=== PATIENT | male | born 1970 | race Caucasian/White ===

== ENCOUNTER 2020-10-01 09:20 | Outpatient (NON) | payer BC, SELFPAY ==
[2020-10-01 23:55] LABS: SARS-CoV-2 RNA PCR Positive
== END 2020-10-01 09:21 ==
LOC: ANHCOVIDDT 09:21
PROVIDERS: PCP Internal Medicine; Visit Provider Internal Medicine
DX: U07.1 COVID-19 (principal)
CPT/HCPCS: 87635; C9803; U0003

== ENCOUNTER 2022-06-10 08:54 | Outpatient (CLI) | payer BC, SELFPAY ==
[2022-06-10 19:04] LABS: Alanine Aminotransferase 29 U/L (6-50); Albumin Level 4.2 g/dL (3.5-5.1); Alkaline Phosphatase 71 U/L (38-126); Anion Gap 5 mmol/L (8-16); Aspartate Amino Transferase 34 U/L (17-59); Bilirubin,Total 0.7 mg/dL (0.2-1.3); Blood Urea Nitrogen 12 mg/dL (9-20); Calcium 8.9 mg/dL (8.4-10.2); Carbon Dioxide 31 mmol/L (22-30); Chloride 104 mmol/L (98-107); Cholesterol 215 mg/dL (0-200); Estimated Glomerular Filt Rate > 60; Glucose 111 mg/dL (65-110); HDL Direct 48 mg/dL; Sodium 140 mmol/L (137-145); Triglycerides 110 mg/dL (<150)
[2022-06-10 19:15] LABS: LDL Cholesterol Direct 123 mg/dL
[2022-06-10 19:35] LABS: Hemoglobin A1C 6.6 % (<5.7)
== END 2022-06-10 08:55 | disposition home or self-care (01) ==
LOC: ANHGOSHLAB 08:56
PROVIDERS: PCP Family Medicine; Visit Provider Family Medicine
DX: I10 Essential (primary) hypertension (principal); E78.2 Mixed hyperlipidemia; E11.9 Type 2 diabetes mellitus without complications
CPT/HCPCS: 36415; 80053; 80061; 83036

== ENCOUNTER 2023-02-07 20:52 | Outpatient (NON) | payer BC, SELFPAY | END 2023-02-07 20:53 | disposition home or self-care (01) | PROVIDERS: PCP Family Medicine; Visit Provider Family Medicine | DX: R30.0 Dysuria (principal) | CPT/HCPCS: 87086 ==